=== PATIENT | female | born 1940 | race Caucasian/White ===

== ENCOUNTER → 2018-02-28 | Outpatient (CLI) | payer MEDICARE, OTHER ==
[~2018-02-28] MED LIST: AZITHROMYCIN 2250 MG PO; AZO CRANBERRY1 EAC1 PO; CALCIUM 500 +1 EAC5 PO; CIPRO500 MG PO; FLAX OIL1000 MG PO; GLUCOSAMINE &1 EAC1 PO; HYDROCODONE-AP1 EAC6 PO; MECLIZINE HCL12.5 MG PO; MULTIVITAMINS1 EAC7 PO; PROBIOTIC1 EAC1 PO; PROVENTIL HFA6.7 G1 INH; VITAMIN B-12500 MCG PO; ZANTAC 150MG T150 M1 PO
== END ==
LOC: M.RAD 15:30
DX: M81.0 Age-related osteoporosis without current pathological fracture (principal); M19.90 Unspecified osteoarthritis, unspecified site

== ENCOUNTER 2020-01-06 15:52 | Inpatient (IN) | payer MEDICARE ==
[~2020-01-06] VITALS: Ht 160 cm; Wt 46.4 kg
[2020-01-06 16:01] VITALS: BP 113/62
[2020-01-06 16:32] LABS: ABSOLUTE LYMPHOCYTES 1.3 thou/uL (0.8-5.3); ABSOLUTE MONOCYTES 0.6 thou/uL (0.0-1.2); ABSOLUTE NEUTROPHILS 3.8 thou/uL (1.6-8.1); BASOPHILS 0.8 %; EOSINOPHILS 0.8 %; HEMATOCRIT 35.3 % (37.0-47.0); HEMOGLOBIN 12.5 gm/dL (12.0-15.0); LYMPHOCYTES 22.3 %; MCH 31.4 pg (26.0-34.0); MCHC 35.4 g/dL (28.0-37.0); MCV 88.7 fL (80.0-100.0); MONOCYTES 10.9 %; NUCLEATED RBCS 0 /100WBC; PLATELET COUNT* 210 thou/uL (150-400); POLYS 65.2 %; RBC 3.97 mil/uL (4.20-5.00); RDW-CV 13.2 % (10.5-14.5); WBC 5.9 thou/uL (4.0-11.0)
[2020-01-06 16:43] LABS: POTASSIUM 3.4 mmol/L (3.5-5.1)
[2020-01-06 16:47] LABS: CALCIUM 13.4 mg/dL (8.5-10.1)
[2020-01-06 16:54] LABS: ALBUMIN 3.6 g/dL (3.4-5.0); TOTAL BILIRUBIN 0.4 mg/dL (<0.1-1.0); TOTAL PROTEIN 6.2 g/dL (6.4-8.2)
--- NOTE | 2020-01-06 17:04 | EKG ---
[place] [address] ELECTROCARDIOGRAM REPORT Name: TERI MARSHALL Room: [facility].#: [id number] Admission: Attend Phys: Discharge: Date of : 42 Date of Service: 01/06/20 1608 Report #: [id number] THIS REPORT FOR: //name// [facility] ED Test Date: 2020-01-06 Test Time: 16:08:48 Pat Name: TERI MARSHALL Department: Room: Gender: F Block Sawyer: TDS : 1940 Requested By: Pxaton Mcknight Order Number: [id number] MD: Reggie Ventura Measurements Intervals [place] Rate: 68 P: 29 VA: 184 QRS: -34 QRSD: 147 T: 77 QT: 450 QTc: 479 Interpretive Statements Sinus rhythm ventricular premature complex Left bundle branch block Compared to ECG 03/08/2016 15:31:35 ventricular premature complex(es) now present Electronically Signed On 01-06-2020 17:03:58 CDT by Reggie Ventura [email or web address] <ELECTRONICALLY SIGNED> By: Reggie Ventura MD, [facility] 01/06/20 1703 1608 1608 Reggie Ventura MD, [facility] /EPI
[2020-01-06 18:18] LABS: URINE BILIRUBIN NEGATIVE (Negative); URINE BLOOD 1+ (Negative); URINE CLARITY CLOUDY; URINE COLOR YELLOW; URINE GLUCOSE-RANDOM NEGATIVE (Negative); URINE KETONES NEGATIVE (Negative); URINE NITRITE-REFLEX NEGATIVE (Negative); URINE PROTEIN 1+ (Negative); URINE UROBILINOGEN 0.2 E.U./dl (0.2-1.0)
[2020-01-06 18:19] LABS: URINE LEUKOCYTES-REFLEX 3+ (Negative)
[2020-01-06 18:50] LABS: BACTERIA-REFLEX >30 Many /HPF (None Seen); URINE WBC-REFLEX >25 Many /HPF (0-5); WBC CLUMPS Few (None Seen)
[2020-01-06 18:51] LABS: CRYSTALS None Seen /LPF (None Seen); HYALINE CASTS 0-3 Few /LPF (None Seen); MUCUS None Seen strn/LPF (None Seen); SQUAMOUS 0-3 Few /LPF (0-3); URINE RBC 3-10 Few /HPF (0-2)
[2020-01-06 19:02] VITALS: BP 117/86
[2020-01-06 19:30] VITALS: BP 137/66
[2020-01-06 19:34] LABS: PHOSPHORUS* 2.9 mg/dL (2.5-4.9)
[2020-01-06 19:39] LABS: CALCIUM 13.1 mg/dL (8.5-10.1)
[2020-01-06 19:56] LABS: PHOSPHORUS* 2.7 mg/dL (2.5-4.9)
[2020-01-07] VITALS: BP 154/73
--- NOTE | 2020-01-07 00:33 | NUR ---
PT ADMITTED TO RM 232 @ ABOUT 1920. PT ALERT AND ORIENTED. SOME ONFUSION AND FORGETFULNESS NOTED. VSS ON RA. PT ORIENTED TO RM AND CALL LIGHT. LAC IV WITH 1/2 NS @ 150. FALL RISK IN PLACE. MEDS GIVEN ORDERED. HOME MED RECONCILED. PT VOICED HAVING ALLERGY TO FISH BUT UNABLE TO RECALL IF SHE HAS ALLERGY TO SULFA SEEN ON HER ALLERGY LIST. PT CURRENTLY IN BED SLEEPING. WILL CONTINUE TO MONITOR.
[2020-01-07 04:23] VITALS: BP 147/65
[2020-01-07 05:53] LABS: ABSOLUTE LYMPHOCYTES 1.8 thou/uL (0.8-5.3); ABSOLUTE MONOCYTES 0.7 thou/uL (0.0-1.2); ABSOLUTE NEUTROPHILS 3.3 thou/uL (1.6-8.1); BASOPHILS 0.5 %; EOSINOPHILS 0.7 %; HEMATOCRIT 31.9 % (37.0-47.0); HEMOGLOBIN 11.7 gm/dL (12.0-15.0); LYMPHOCYTES 30.5 %; MCH 32.4 pg (26.0-34.0); MCHC 36.7 g/dL (28.0-37.0); MCV 88.1 fL (80.0-100.0); MONOCYTES 11.4 %; MPV 7.5 fl. (7.2-11.1); NUCLEATED RBCS 0 /100WBC; PLATELET COUNT* 173 thou/uL (150-400); POLYS 56.9 %; RBC 3.62 mil/uL (4.20-5.00); WBC 5.8 thou/uL (4.0-11.0)
[2020-01-07 06:13] LABS: CREATININE 1.7 mg/dL (0.6-1.3)
[2020-01-07 06:16] LABS: CALCIUM 11.5 mg/dL (8.5-10.1); CREATININE 1.6 mg/dL (0.6-1.3)
[2020-01-07 06:18] LABS: CALCIUM 11.4 mg/dL (8.5-10.1); POTASSIUM 2.8 mmol/L (3.5-5.1)
[2020-01-07 06:21] LABS: POTASSIUM 2.9 mmol/L (3.5-5.1)
--- NOTE | 2020-01-07 07:05 | NUR ---
CHANGE OF SHIFT, BEDSIDE REPORT REPORT GIVEN PATIENT SEEN AT BEDSIDE, IN BED ASLEEP ASSUMED PATIENT CARE
[2020-01-07 08:00] VITALS: BP 159/69
--- NOTE | 2020-01-07 08:19 | NUR ---
PT SLEPT WELL THIS SHIFT. REMAINED ALERT AND ORIENTED X4, SOME CONFUSION AND FORGETFULNESS. STB ASSIST TO THE BATHROOM. NO BM NOTED THIS SHIFT. K+ CRITICAL AT 2.8. ELYTE REPLACEMENT PROTOCOL INITIATED. FALL PRECAUTION IN PLACE. CALL LIGHT WITHIN REACH. HOURLY ROUNDINGS MADE. WILL CONTINUE MONITOR.
--- NOTE | 2020-01-07 08:45 | NUR ---
Pt is A&O. Resides at home with her son and DIL. Independent with ADLs, family completes most IADLs. Pt stated that she really hasn't left the house much since covid started, but has recently started going out again and driving more. No DME. No hx of HH or SNF. Pt states that she may want HH at [place], CM to assess for HH need closer to [place]. Following.
--- NOTE | 2020-01-07 12:05 | NUR ---
Nutrition: Pt admitted with weakness, dizziness. Consult recevied for wt change. Admit wt was 106#, today's wt is recorded as 85#. Spoke with pt and dtr-in-law; pt usually weighs ~110# and hasn't noticed any wt changes. She is eating like normal. She has a fish allergy - RD alerted kitchen to this. Pt is hungry for lunch tray. Labs: BG 68-103, albumin 3.6. Low nutrition risk.
[2020-01-07 12:38] VITALS: BP 139/68
[2020-01-07 19:07] LABS: IgA 113 mg/dL (64-422); IgG 395 mg/dL (586-1602); IgM 39 mg/dL (26-217)
[2020-01-07 19:08] VITALS: BP 131/71
[2020-01-07 20:00] VITALS: BP 120/66
[2020-01-08] VITALS: BP 120/55
[2020-01-08 04:00] VITALS: BP 120/54
--- NOTE | 2020-01-08 05:58 | NUR ---
ASSUMED PATIENT CARE AT 1900. PATIENT ALERT AND ORINETED TIMES FOUR. ABLE TO SLEEP THROUGH MOST OF THE NIGHT. NO COMPLAINTS OF PAIN OR DISCOMFORT NOTED. [employer] OPERATOR AND HOURLY ROUNDING COMPLETED DOCUMENTED.
[2020-01-08 08:00] VITALS: BP 125/54
[2020-01-08 08:20] LABS: ABSOLUTE EOSINOPHILS 0.1 thou/uL (0.0-0.7); ABSOLUTE LYMPHOCYTES 1.3 thou/uL (0.8-5.3); ABSOLUTE MONOCYTES 0.4 thou/uL (0.0-1.2); ABSOLUTE NEUTROPHILS 2.2 thou/uL (1.6-8.1); BASOPHILS 0.4 %; HEMATOCRIT 29.8 % (37.0-47.0); HEMOGLOBIN 10.8 gm/dL (12.0-15.0); LYMPHOCYTES 33.5 %; MCH 31.9 pg (26.0-34.0); MCHC 36.2 g/dL (28.0-37.0); MCV 88.1 fL (80.0-100.0); MPV 7.6 fl. (7.2-11.1); NUCLEATED RBCS 0 /100WBC; PLATELET COUNT* 177 thou/uL (150-400); POLYS 54.1 %; RBC 3.39 mil/uL (4.20-5.00); RDW-CV 13.2 % (10.5-14.5)
[2020-01-08 08:27] LABS: ALBUMIN 2.9 g/dL (3.4-5.0); CALCIUM 10.5 mg/dL (8.5-10.1); CREATININE 1.3 mg/dL (0.6-1.3); POTASSIUM 3.9 mmol/L (3.5-5.1); TOTAL BILIRUBIN 0.4 mg/dL (<0.1-1.0); TOTAL PROTEIN 5.2 g/dL (6.4-8.2)
[2020-01-08 15:52] VITALS: BP 114/53
[2020-01-08 16:06] LABS: KAPPA FREE LIGHT CHAINS 15.4 mg/L (3.3-19.4); LAMBDA FREE LIGHT CHAINS 14.5 mg/L (5.7-26.3)
--- NOTE | 2020-01-08 17:31 | NUR ---
Pt AOx4. Assumed care today at 1400. Pt is up with minimal assist with gb and walker. Pt c/o no pain this shift. IVF running and pt tolerating well. Hourly rounding complete will continue to monitor
[2020-01-08 21:16] VITALS: BP 133/69
[2020-01-09 05:29] LABS: ABSOLUTE EOSINOPHILS 0.1 thou/uL (0.0-0.7); ABSOLUTE LYMPHOCYTES 1.5 thou/uL (0.8-5.3); ABSOLUTE MONOCYTES 0.5 thou/uL (0.0-1.2); ABSOLUTE NEUTROPHILS 2.4 thou/uL (1.6-8.1); BASOPHILS 0.3 %; EOSINOPHILS 2.2 %; HEMATOCRIT 29.3 % (37.0-47.0); HEMOGLOBIN 10.4 gm/dL (12.0-15.0); MCH 31.6 pg (26.0-34.0); MCHC 35.4 g/dL (28.0-37.0); MCV 89.2 fL (80.0-100.0); MONOCYTES 10.6 %; MPV 8.1 fl. (7.2-11.1); NUCLEATED RBCS 0 /100WBC; PLATELET COUNT* 183 thou/uL (150-400); POLYS 53.9 %; RBC 3.29 mil/uL (4.20-5.00); RDW-CV 13.3 % (10.5-14.5); WBC 4.6 thou/uL (4.0-11.0)
[2020-01-09 05:37] LABS: CALCIUM 9.4 mg/dL (8.5-10.1); CREATININE 1.2 mg/dL (0.6-1.3); POTASSIUM 4.1 mmol/L (3.5-5.1)
--- NOTE | 2020-01-09 07:51 | NUR ---
PATIENT HAS SLEPT WELL THROUGHOUT THE NIGHT. VSS ON RA. NO C/O PAIN. MEDICATIONS GIVEN ORDERED AND CHARTED. PATIENT IS UP AD-ROMELIA TO THE BATHROOM AND STEADY ON HER FEET. IV IN RIGHT FOREARM-1/2 NS @ 100ML/HR. PATIENT INSTRUCTED TO USE CALL LIGHT WHEN NEEDING ASSISTANCE. HOURLY ROUNDS MADE. WILL CONTINUE WITH PLAN OF CARE AND NURSING TO MONITOR.
[2020-01-09 08:20] VITALS: BP 108/65
--- NOTE | 2020-01-09 08:47 | NUR ---
cm discussd hh recommendation with pt, and pt declined hh.
[2020-01-09 12:14] VITALS: BP 108/65
[2020-01-09 13:34] VITALS: BP 108/65
--- NOTE | 2020-01-09 13:35 | NUR ---
Pt given discharge instructions and verbalized understanding. Pt discharged in stable condition, up ad farhat in room and ambulates without difficulty. IV removed, belongings returned. Voiced no complaints and all questions answered, no other concerns.
[2020-01-09 15:07] LABS: URINE PROTEIN (MG/DL) 42.1 mg/dL (Not Estab.)
--- NOTE | 2020-01-10 13:17 | CON ---
[facility] [place] [address] [place] [address] CONSULTATION Name: MARSHALLTERI J Room: [address] M.R.#: [id number] Admission: 01/06/20 Attend Phys: Dev Hastings MD Discharge: 01/09/20 Date of : 42 Report #: [id number] THIS REPORT FOR: //name// cc: Malika Harmon Linda J. DO ~ THIS REPORT FOR: //name// CC: Dev Harmon DATE OF SERVICE: 01/07/2020 NEPHROLOGY CONSULTATION CONSULTING PHYSICIAN: Dev Hastings M.D. REASON FOR NEPHROLOGY CONSULTATION: Acute kidney injury and hypercalcemia. REASON FOR ADMISSION: Weakness, dizziness, and hypercalcemia. HISTORY OF PRESENT ILLNESS: This is a 79-year-old female who presented with progressive weakness, nausea, and vomiting and also possible loss of weight. She recently was admitted because of these symptoms and her creatinine was 2.0 and her serum calcium was 13.1. Nephrology was consulted because of acute kidney injury and hypercalcemia. We have normal calcium level from 2016 and a creatinine at that time was also 0.7. The patient was started on IV fluids and her calcium is better this morning at 11.5 and her creatinine is also better at 1.6. The patient denies taking any NSAIDs. She has been having some stuttering when she is talking, but I am not sure if it is normal for her. She has been taking calcium and vitamin D supplements and she has been taking 4 tablets of those for 3 years and she is not sure why she is taking 4 of them. She is not anemic. Her hemoglobin is 11.7. Workup for hypercalcemia has also been ordered. She has not been eating much over here in the hospital. ALLERGIES: SULFA AND FISH-CONTAINING PRODUCTS. REVIEW OF SYSTEMS: As mentioned in history of present illness, otherwise 10-point review of systems are negative. HOME MEDICATIONS: Include multivitamins, calcium and vitamin D supplements and she is taking 4 of them a day, glucosamine, flaxseed oil, cranberry extract, lactobacillus, and cyanocobalamin. PAST MEDICAL AND SURGICAL HISTORY: Include arthritis, osteoporosis, reflux, nocturia, hysterectomy, back surgery, [place] [address] CONSULTATION Name: TERI MARSHALL Room: [address]#: [id number] Admission: 01/06/20 Attend Phys: Dev Hastings MD Discharge: 01/09/20 Date of : 42 Report #: [id number] FAMILY HISTORY: Reviewed and noncontributory because of her age. SOCIAL HISTORY: She does not smoke, drink alcohol, or use illicit drugs. She lives at home. PHYSICAL EXAMINATION: VITAL SIGNS: Her blood pressure is 159/69, pulse ox is 98, respiratory rate is 16, pulse rate is 63, and temperature is 37.1. GENERAL: She is awake, alert, oriented x 3. HEAD AND EYES: Atraumatic, normocephalic. Normal conjunctivae. EARS, NOSE, AND THROAT: Normal ears and nose. Mucous membranes are dry. NECK: No JVD. CHEST: Bilaterally diminished breath sounds anteriorly. No crackles or wheezing. CARDIOVASCULAR: S1, S2 normal. No murmurs, rubs, or gallops. ABDOMEN: Soft. It is nondistended, nontender. Bowel sounds are present. EXTREMITIES: Lower extremities, there is no lower extremity edema. NEUROLOGIC: Grossly intact. PSYCHIATRIC: Mood alvarenga, she seems to be normal. LABORATORY DATA: WBC 5.8, hemoglobin is 11.7, platelet count is 173. Sodium is 141, potassium is 2.9, BUN is 25, creatinine is 1.6, and calcium is 11.5, which is down from 13.1 when she first came in. Other labs were reviewed. IMAGING: Chest x-ray was reviewed. Renal ultrasound was also reviewed, did not show any evidence of obstructive uropathy. ASSESSMENT: 1. Acute kidney injury in the setting of hypercalcemia and intravascular volume depletion. Baseline creatinine is not known, but creatinine 2.0 on admission. UA was reviewed, did look contaminated. It did have 1+ protein and 3-10 rbc's per high power field. It should be repeated once her acute kidney injury gets better. 2. Hypokalemia and is was because of poor oral intake. 3. Hypercalcemia. This could also be because of poor oral intake and excessive calcium supplements, but further workup does need to be done. 4. Weakness, could be because of hypercalcemia and hypokalemia. 5. Possible urinary tract infection. It does look like a contaminated urine specimen, we will defer to primary team. PLAN: 1. Continue with IV fluids half normal saline at 150 mL an hour and continue to monitor her labs, so far her calcium and creatinine are getting better. We do need to find out her baseline creatinine from her PCP's office. 2. Please keep monitoring her bladder scan to make sure she is not retaining any urine, PTH and vitamin D levels, both 25 hydroxy and 1,25 hydroxy have been [facility] [place] [address] [place] [address] CONSULTATION Name: TERI MARSHALL Room: [address]#: [id number] Admission: 01/06/20 Attend Phys: Dev Hastings MD Discharge: 01/09/20 Date of : 42 Report #: [id number] ordered. 3. Continue to keep her multivitamins and calcium and vitamin D supplements on hold. 4. Continue to replace potassium according to protocol. 5. Strict I's and O's on her. Thank you for this consultation. We will continue to follow with you. Discussed with the patient and the patient's nurse. <ELECTRONICALLY SIGNED> By: Jennyfer Stark MD 01/10/20 1317 0954 [id number] Stark MD /nt
== END 2020-01-09 13:20 | disposition home or self-care (01) | DRG 682 ==
LOC: M.ERS 15:52 → M.TBA-ER 17:02 → M.2W 17:02 → M.ORTHSURG 01-08 10:25
PROVIDERS: Emergency Medicine Emergency Medical Services; Internal Medicine; ADMIT Internal Medicine; ATTEND Internal Medicine
DX: N17.0 Acute kidney failure with tubular necrosis (principal); E43 Unspecified severe protein-calorie malnutrition; Z68.1 Body mass index [BMI] 19.9 or less, adult; Z20.828 Contact with and (suspected) exposure to other viral communicable diseases; M19.90 Unspecified osteoarthritis, unspecified site; M81.0 Age-related osteoporosis without current pathological fracture; K21.9 Gastro-esophageal reflux disease without esophagitis; E83.52 Hypercalcemia; E86.9 Volume depletion, unspecified; E87.6 Hypokalemia; Z90.710 Acquired absence of both cervix and uterus; Z88.2 Allergy status to sulfonamides